=== PATIENT | female | born 1990 | race Caucasian/White ===

== ENCOUNTER 2019-07-22 23:26 | Inpatient (IN) | payer SELFPAY ==
[~2019-07-22] VITALS: Ht 167.7 cm; Wt 88.9 kg
--- NOTE | 2019-07-22 23:34 | NUR ---
FARA TORRES presented to unit via wheelchair from ED, accompanied by family , with c/o LABOR. FARA TORRES weighed, gowned, voided, and to bed. EFHM and TOCO applied, VS taken. FARA TORRES oriented to bed controls, call light, TV, heat, and A/C controls.
[2019-07-22 23:45] VITALS: BP 110/55
--- NOTE | 2019-07-22 23:53 | NUR ---
Dr. Jones called about patient arrival, SVE, SROM at home at 0830, FHR rate, and contraction pattern. Orders received for admit, antibiotics for unknown GBS, and for labs.
[2019-07-23] VITALS (13 sets, daily range): BP systolic 91–115; BP diastolic 53–73
[2019-07-23] MEDS ORDERED: AMPICILLIN FOR IV USE 2,000 MG in WATER (STERILE) FOR INJECTION 14.8 ML IV SCH ×2
[2019-07-23] MEDS ORDERED: LACTATED RINGERS 1,000 ML IV SCH
--- NOTE | 2019-07-23 00:01 | NUR ---
Dr. Jones notified of late decelerations after each contractions. On way to hospital to assess pt.
[2019-07-23] MEDS ORDERED: AMPICILLIN FOR IV USE 2,000 MG VIAL ONE (00:04)
[2019-07-23] MEDS ORDERED: WATER (STERILE) FOR INJECTION 10 ML ONE (00:04)
--- NOTE | 2019-07-23 00:13 | NUR ---
Dr. Jones here to see pt. Orders received for STAT section.
--- NOTE | 2019-07-23 00:25 | NUR ---
Pt. transferred to OB OR via bed per OB staff.
[2019-07-23] MEDS ORDERED: metroNIDAZOLE 500MG/100ML IVPB 100 ML ONE (00:30)
[2019-07-23] MEDS ORDERED: OXYTOCIN/NORMAL SALINE 500 ML IV ONE ×2 (00:32→01:38)
[2019-07-23 00:42] LABS: BASOPHILS % (AUTO) 0 % (0-10); EOSINOPHILS # (AUTO) 0.2 10^3/uL (0.0-0.3); EOSINOPHILS % (AUTO) 2 % (0-10); HEMATOCRIT 31 % (35-52); HEMOGLOBIN 10.1 G/DL (11.5-16.0); LYMPHOCYTES # (AUTO) 1.3 X 10^3 (1.0-4.0); LYMPHOCYTES % (AUTO) 12 % (12-44); MEAN CORPUSCULAR HEMOGLOBIN 27 PG (25-34); MEAN CORPUSCULAR HGB CONC 32 G/DL (32-36); MEAN CORPUSCULAR VOLUME 85 FL (80-99); MEAN PLATELET VOLUME 9.8 FL (7.4-10.4); MONOCYTES # (AUTO) 0.9 X 10^3 (0.0-1.0); MONOCYTES % (AUTO) 8 % (0-12); NEUTROPHILS % (AUTO) 78 % (42-75); PLATELET COUNT 265 10^3/uL (130-400); RED CELL DISTRIBUTION WIDTH 15.3 % (10.0-14.5); WHITE BLOOD COUNT 10.3 10^3/uL (4.3-11.0)
[2019-07-23] MEDS ORDERED: MIDAZOLAM 2 MG/2 ML (VERSED) VIAL ONE (00:51)
[2019-07-23] MEDS ORDERED: fentaNYL INJECTION 100 MCG/2 ML AMP ONE ×2 (00:51→01:37)
[2019-07-23] MEDS ORDERED: DEXAMETHASONE 10 MG/ML (DECADRON) 1 ML VIAL ONE (01:08)
[2019-07-23] MEDS ORDERED: SUCCINYLCHOLINE INJ 100 MG/5 ML SYR ONE (01:08)
[2019-07-23] MEDS ORDERED: KETOROLAC 30 MG/ML VIAL ONE (01:08)
[2019-07-23] MEDS ORDERED: ONDANSETRON 4 MG/2 ML (SDV) Z0FRAN ONE (01:08)
[2019-07-23] MEDS ORDERED: proPOfol 200 MG/20 ML (DIPRIVAN) VIAL IV ONE (01:08)
[2019-07-23] MEDS: KETOROLAC 30 MG/ML VIAL IVP PRN ×4 (01:20→19:51)
[2019-07-23] MEDS: OXYTOCIN/NORMAL SALINE 500 ML IV SCH ×2 (01:25→05:10)
[2019-07-23] MEDS ORDERED: HYDROmorphone 2 MG/ML VIAL (DILAUDID) ONE (01:37)
[2019-07-23] MEDS ORDERED: DESFLURANE (SUPRANE) 15 ML INHAL SOLN ONE (01:38)
[2019-07-23] MEDS ORDERED: D5 LR IV SOLUTION 1,000 ML IV SCH ×2 (01:38)
[2019-07-23] MEDS ORDERED: TETANUS,DIPTH,PERTUSS P/F (BOOSTRIX) 0.5 ML VIAL IM ONE (01:45)
[2019-07-23] MEDS ORDERED: ONDANSETRON 4 MG/2 ML (SDV) Z0FRAN IVP PRN ×2 (01:45→02:30)
[2019-07-23] MEDS ORDERED: MEASLES,MUMPS,RUBELLA 1 EA INJ SC ONE (01:45)
[2019-07-23] MEDS ORDERED: ceFAZolin 2 GM/50 ML NS 50 ML IV ONE (01:45)
--- NOTE | 2019-07-23 01:48 | History & Physical ---
History and Physical Date Seen by Provider: Jul 23, 2019 Time Seen by Provider: 00:00 This patient is a 28-year-old white female with a reported due date of August 10, 2019. She has had no care she was being attended by nurse warp coiler and was laboring at home after having experienced spontaneous rupture membranes at 830 in the morning on July 22, 2019. She reports clear fluid at the time of spontaneous rupture. She reports having onset of irregular infrequent contractions starting approximately an hour later. She presented to our labor and delivery with the complaint of failure to progress in labor. Allergies are none Medications are none Past surgical history is none Past medical history is none Obstetric history includes 5 term spontaneous vaginal deliveries Social history patient denies tobacco drug or alcohol use. Family history is noncontributory HEENT exam is normal Neck is supple with no lymphadenopathy no thyromegaly Abdomen is gravid soft mildly tender at the suprapubic pubis Extremities show no clubbing or cyanosis. There is extensive varicosities Pelvic exam per the nurse showed a cervix that was 4 cm dilated with gross rupture membranes Laboratory Tests 07/23/19 00:00 monitor on my arrival heart rate pattern showed no excels with repetitive decelerations and no variability. Assessment and plan 37+ week intrauterine with failure to progress in labor after spontaneous rupture membranes at home. Patient labored at home with intention for home delivery. As the heart rate pattern is nonreassuring, rupture of membranes is definite per the nurse report, plan is to proceed with emergent delivery. This was discussed with the patient and her and mother. Their questions were answered and patient agreed with and accepted the plan. With failure to progress in labor during planned home delivery Allergies and Home Medications Allergies Coded Allergies: No Known Drug Allergies (Unverified , 07/23/19) Patient Home Medication List Home Medication List Reviewed: Yes ABHIJEET RODRIGUEZ MD Jul 23, 2019 01:47
[2019-07-23] MEDS ORDERED: fentaNYL INJECTION 100 MCG/2 ML AMP IVP ONE ×2 (02:30)
[2019-07-23] MEDS ORDERED: morphine INJ 10 MG/ML 1ML (SYR OR VIAL) IVP ONE (02:30)
[2019-07-23] MEDS ORDERED: HYDROmorphone 2 MG/ML VIAL (DILAUDID) IV ONE ×2 (02:30)
--- NOTE | 2019-07-23 02:30 | NUR ---
to pp room 305 following primary csection for distress by dr bañuelos via cart with recovery nurse. resting supine head of bed slightly elevated. family present at bedside. dressing D/I. vpad scant flow noted. vitals taken. oxygen on @ 2L via NC spo2 91%. raised to 95% with O2 will continue to monitor. denies need at this time.
[2019-07-23] MEDS ORDERED: AMPICILLIN FOR IV USE 1,000 MG in WATER (STERILE) FOR INJECTION 7.4 ML IV SCH (04:00)
--- NOTE | 2019-07-23 04:16 | OPERATIVE REPORT ---
DATE OF SERVICE: 07/23/2019 PREOPERATIVE DIAGNOSES: Term with failed attempted home delivery at 37 and 3/7 weeks' gestation with failure to progress in labor and with nonreassuring heart rate pattern/repetitive late decelerations. POSTOPERATIVE DIAGNOSES: SAME OPERATIVE PROCEDURE: Primary low transverse delivery of a viable female with Apgars of 6 and 8 at 1 and 5 minutes respectively, weight is 7 pounds 2 ounces. Cord blood pH of 7.22 and a time of 00:47. OPERATIVE DESCRIPTION: With the patient in the supine position, she was prepped and draped in the usual fashion for abdominal surgery and then general anesthesia was administered. On clearance from anesthesia when the patient was intubated, a Pfannenstiel incision was made through the skin with a scalpel, the patient's abdomen was entered in the usual manner. Bladder retractor was placed into position and a clean scalpel was used to make a 4 cm hysterotomy incision transversely across the lower uterine segment. There was essentially no amniotic fluid. The incision was extended by blunt dissection and a viable female infant was delivered via the uterine incision. had stats as noted above. The was bulb suctioned on delivery. The cord was doubly clamped and cut and the infant was taken to the warmer for resuscitation. Cord bloods were obtained. The placenta delivered spontaneously Colmenares. It was normal with a 3-vessel cord. The uterus was exteriorized. The interior wiped clean with a wet laparotomy sponge. Uterine incision was closed with a running locked suture of 2-0 Vicryl. It was noted on hysterotomy, a foul odor was detected. A culture was taken from the surface of the membranes. With the uterine incision closed, the uterus was returned to the abdominal cavity. All blood clot and debris was evacuated from the abdominal cavity. With sponge, needle counts correct and hemostasis assured at this point, the anterior parietal peritoneum was closed with a running suture of 2-0 Vicryl. Rectus muscles were closed with that suture as well. The rectus fascia was closed with 2-0 Vicryl, subcutaneous tissue was closed with 2-0 Vicryl and the skin closure was started with tanisha and then halted in favor of allowing an intraoperative x-ray for retained foreign objects. With none noted on the two films that were taken by the x-ray department, the procedure was completed by closing the skin and then applying the dressings. Sponge and needle counts were correct on completion of the procedure. Estimated blood loss was around 500 mL. The patient tolerated the procedure well and was uneventfully awakened from her general anesthesia and transferred to recovery room in stable condition. The infant had been taken stable to the full term nursery under the care of Dr. Valente. Job ID: [id number] DocumentID: [id number] Dictated Date: 07/23/2019 01:53:12 Studio Engineer Date: 07/23/2019 04:15:38 Dictated By: ABHIJEET RODRIGUEZ MD MTDD
[2019-07-23] MEDS: ceFAZolin 2 GM/50 ML NS 50 ML IV SCH ×2 (05:00→12:04)
[2019-07-23] MEDS ORDERED: CATHETER FLUSH 10 ML SYR IV SCH (06:00)
--- NOTE | 2019-07-23 07:03 | Diagnostic Imaging Report ---
INDICATION: Immediate postop imaging for abnormal sponge count. COMPARISON: None available. FINDINGS AND IMPRESSION: There are changes from lower abdominal laparotomy likely from section. No unintended radiopaque foreign bodies are appreciated. Dictated by: Dictated on workstation # [id number]
--- NOTE | 2019-07-23 07:48 | Progress Note ---
Standard Progress Note Progress Notes/Assess & Plan Date Seen by a Provider: Jul 23, 2019 Time Seen by a Provider: 07:47 Progress/Assessment & Plan This patient is without complaint. She is ambulating, tolerating oral intake well has good pain control. Patient has not voided since her just after midnight. Vital Signs Date Time Temp Pulse Resp B/P (MAP) Pulse Ox O2 Delivery O2 Flow Rate FiO2 07/23/19 02:30 36.6 75 14 108/63 (78) Room Air 07/23/19 02:30 36.9 20 104/68 (80) 98 Room Air 07/23/19 02:30 Room Air 07/23/19 02:20 20 100/68 (79) 97 Room Air 07/23/19 02:15 Room Air 07/23/19 02:10 20 98/68 (78) 97 Room Air 07/23/19 02:00 20 109/68 (82) 97 Room Air 07/23/19 02:00 Room Air 07/23/19 01:50 20 109/68 (82) 97 Room Air 07/23/19 01:45 Nasal Cannula 2 07/23/19 01:40 20 113/68 (83) 97 Nasal Cannula 2 07/23/19 01:30 Nasal Cannula 2 07/23/19 01:30 20 115/73 (87) 98 Nasal Cannula 2 07/23/19 01:24 Nasal Cannula 2 07/23/19 01:24 36.9 20 115/73 (87) 98 Nasal Cannula 2 07/22/19 23:45 95 16 110/55 (73) Room Air I & O 07/23/19 07:00 Output Total 700 ml Balance -700 ml Vital signs are stable. Patient is afebrile. The abdomen is benign. The surgical dressings is clean dry. Extremities show no clubbing cyanosis. There is extensive adiposity's. There is no Homans sign. There is some pretibial pitting edema that is likely normal. Assessment and plan status post emergency for nonreassuring heart rate pattern at 37+ weeks gestation after a trial of home delivery was unsuccessful. Plan now is for routine convalescence. ABHIJEET RODRIGUEZ MD Jul 23, 2019 07:48
--- NOTE | 2019-07-23 07:50 | Anesthesia-Regional Post-Op ---
Regional Patient Condition Mental Status: Alert, Oriented x3 Circulation: Same as Pre-Op Headache: Absent Sensation: Full Recovery Motor Block: Absent Post Op Complications Complications None Follow Up Care/Instructions Patient Instructions None needed. Anesthesia/Patient Condition Patient is doing well, no complaints, stable vital signs, no apparent adverse anesthesia problems. No complications reported per nursing. HERMINIO MORGAN CRNA Jul 23, 2019 07:50
[2019-07-23] MEDS ORDERED: DOCU100C37 PO (07:59)
[2019-07-23] MEDS ORDERED: IBUP-1780 PO (07:59)
[2019-07-23] MEDS ORDERED: OXYC1TAB12 PO (07:59)
--- NOTE | 2019-07-23 08:00 | Discharge Instructions ---
Discharge Instructions Discharge Medications New, Converted or Re-Newed RX: RX on Chart Patient Instructions Return to The Hospital For: As directed Activity & Diet Discharge Diet: No Restrictions Activity as Tolerated: No Orders-Post D/C & Referrals Follow Up Appt: RTC 1 week for incision check. Call to make follow up appt. for patient in 4 weeks. Wound Care: Remove tanisha, apply benzoin and steri strips. Activity Per routine post instructions. Please call in RX to patient pharmacy. Diet as tolerated Patient may shower or tub bathe as desired. Continue home meds ABHIJEET RODRIGUEZ MD Jul 23, 2019 08:00
[2019-07-23] MEDS: oxyCODONE/APAP 10/325MG (PERCOCET 10) TABLET PO PRN ×2 (08:08→19:52)
--- NOTE | 2019-07-23 08:11 | NUR ---
THIS RN TO BEDSIDE PT IS C/O PAIN. PT SITTING UP IN BED, . (1) PERCOCET AND ROUTINE TORADOL GIVEN; SEE EMAR FOR FURTHER. RT TO BEDSIDE TO INITIATE INCENTIVE SPIROMETRY. FRESH ICE WATER PROVIDED. NO FURTHER NEEDS VOICED AT THIS TIME.
--- NOTE | 2019-07-23 10:10 | NUR ---
PT IN BED. S/O AND VISITOR REMAIN AT THE BEDSIDE. INITIAL SHIFT ASSESSMENT COMPLETED; SEE INTERVENTION FOR FURTHER. LAB AT BEDSIDE DRAWING . NO NEEDS OR QUESTIONS VOICED. CALL LIGHT AVAILABLE.
--- NOTE | 2019-07-23 12:05 | NUR ---
PT IN BED, ALONE, INFANT AT THE BEDSIDE. ABX AND FLUIDS HUNG AND INFUSING WITHOUT DIFFICULTY; SEE EMAR FOR FURTHER. NO NEEDS VOICED AT THIS TIME. CALL LIGHT WITHIN REACH.
[2019-07-23] MEDS: DOCUSATE SODIUM 100 MG (COLACE) CAP PO SCH ×2 (12:21→19:52)
--- NOTE | 2019-07-23 14:45 | NUR ---
PT IN BED, S/O AND AT THE BEDSIDE. ROUTINE TORADOL GIVEN IVP; SEE EMAR FOR FURTHER. PT DENIES ANY NEEDS AT THIS TIME.
--- NOTE | 2019-07-23 18:08 | NUR ---
PT RESTING, NO NEEDS VOICED.
[2019-07-23 21:27] LABS: HEPATITIS C ANTIBODY C Non-Reactive (Non-Reactive)
[2019-07-24] MEDS: IBUPROFEN 800 MG (MOTRIN) TAB PO SCH ×4 (02:22→21:25)
[2019-07-24 05:30] VITALS: BP 106/59
--- NOTE | 2019-07-24 07:47 | Progress Note ---
Standard Progress Note Progress Notes/Assess & Plan Date Seen by a Provider: Jul 24, 2019 Time Seen by a Provider: 07:45 Progress/Assessment & Plan This patient is without complaint. She is ambulating, tolerating oral intake well has good pain control. Patient has not voided since her just after midnight. Vital Signs Date Time Temp Pulse Resp B/P (MAP) Pulse Ox O2 Delivery O2 Flow Rate FiO2 07/23/19 02:30 36.6 75 14 108/63 (78) Room Air 07/23/19 02:30 36.9 20 104/68 (80) 98 Room Air 07/23/19 02:30 Room Air 07/23/19 02:20 20 100/68 (79) 97 Room Air 07/23/19 02:15 Room Air 07/23/19 02:10 20 98/68 (78) 97 Room Air 07/23/19 02:00 20 109/68 (82) 97 Room Air 07/23/19 02:00 Room Air 07/23/19 01:50 20 109/68 (82) 97 Room Air 07/23/19 01:45 Nasal Cannula 2 07/23/19 01:40 20 113/68 (83) 97 Nasal Cannula 2 07/23/19 01:30 Nasal Cannula 2 07/23/19 01:30 20 115/73 (87) 98 Nasal Cannula 2 07/23/19 01:24 Nasal Cannula 2 07/23/19 01:24 36.9 20 115/73 (87) 98 Nasal Cannula 2 07/22/19 23:45 95 16 110/55 (73) Room Air I & O 07/23/19 07:00 Output Total 700 ml Balance -700 ml Vital signs are stable. Patient is afebrile. The abdomen is benign. The surgical dressings is clean dry. Extremities show no clubbing cyanosis. There is extensive adiposity's. There is no Homans sign. There is some pretibial pitting edema that is likely normal. Assessment and plan status post emergency for nonreassuring heart rate pattern at 37+ weeks gestation after a trial of home delivery was unsuccessful. Plan now is for routine convalescence. July 24, 2019 This patient is without complaint. She is ambulating, voiding, tolerating intake well has good pain control. Patient denies chest pain, denies shortness breath, denies nausea vomiting, and denies headache. Vital Signs Date Time Temp Pulse Resp B/P (MAP) Pulse Ox O2 Delivery O2 Flow Rate FiO2 07/24/19 05:30 36.6 90 18 106/59 (75) 98 Room Air 07/23/19 23:37 36.3 87 18 97/57 (70) 97 07/23/19 19:27 37.6 95 17 107/60 (76) 98 07/23/19 16:16 36.7 92 17 95/57 (70) 97 07/23/19 11:00 36.7 86 18 91/55 (67) 95 Room Air 07/23/19 08:33 37.2 89 16 97/53 (68) 95 Room Air 07/23/19 08:15 Room Air I & O 07/24/19 06:59 Intake Total 3800 ml Output Total 3200 ml Balance 600 ml Vital signs are stable. Patient is afebrile. The abdomen is benign. Fundus is firm below the umbilicus and nontender. Extremities show no clubbing or cyanosis. Assessment and plan postoperative day number 1 status post primary delivery doing well. Plan is for routine convalescence care ABHIJEET RODRIGUEZ MD Jul 24, 2019 07:47
[2019-07-24 08:25] VITALS: BP 94/59
[2019-07-24] MEDS: DOCUSATE SODIUM 100 MG (COLACE) CAP PO SCH ×2 (08:27→21:25)
--- NOTE | 2019-07-24 08:30 | NUR ---
PT IN BED, . VS OBTAINED. MEDS GIVEN PO; SEE EMAR FOR FURTHER. NO NEEDS VOICED AT THIS TIME.
--- NOTE | 2019-07-24 10:06 | Anesthesia-General Post-Op ---
General Patient Condition Mental Status/LOC: Same as Preop Cardiovascular: Satisfactory Nausea/Vomiting: Absent Respiratory: Satisfactory Pain: Controlled Complications: Absent Post Op Complications Complications None Follow Up Care/Instructions Patient Instructions None needed. Anesthesia/Patient Condition Patient Condition Patient is doing well, no complaints, stable vital signs, no apparent adverse anesthesia problems. No complications reported per nursing. WALE BRADSHAW CRNA Jul 24, 2019 10:06
--- NOTE | 2019-07-24 11:11 | NUR ---
INITIAL ASSESSMENT COMPLETED; SEE INTERVENTION FOR FURTHER. S/O AT THE BEDSIDE. SHOWER SET UP. CALL LIGHT WITHIN REACH.
[2019-07-24 15:15] VITALS: BP 113/58
--- NOTE | 2019-07-24 15:15 | NUR ---
PT IN BED, VISITORS AT THE BEDSIDE. VS OBTAINED. ROUTINE MOTRIN GIVEN PO; SEE EMAR FOR FURTHER. NO NEEDS VOICED AT THIS TIME.
--- NOTE | 2019-07-24 18:27 | NUR ---
PT SITTING UP IN BED, EATING DINNER. FRESH ICE WATER PROVIDED. MORE SUPPLIES PLACED INTO THE BATHROOM. PT ENCOURAGED TO GET UP AND WALK THE HALLWAYS TONIGHT. PT VOICES THAT SHE'S BEEN UP TO THE CHAIR TWICE TODAY. NO FURTHER NEEDS VOICED. CALL LIGHT WITHIN REACH. S/O AT THE BEDSIDE.
--- NOTE | 2019-07-24 19:30 | NUR ---
Family and visitors present in room with patient and baby. No needs or concerns voiced at this time. Will return for assessment.
[2019-07-24 21:30] VITALS: BP 103/63
[2019-07-25] MEDS: IBUPROFEN 800 MG (MOTRIN) TAB PO SCH ×2 (03:01→09:30)
[2019-07-25 03:03] VITALS: BP 103/68
--- NOTE | 2019-07-25 07:30 | Progress Note ---
Standard Progress Note Progress Notes/Assess & Plan Date Seen by a Provider: Jul 25, 2019 Time Seen by a Provider: 07:29 Progress/Assessment & Plan This patient is without complaint. She is ambulating, tolerating oral intake well has good pain control. Patient has not voided since her just after midnight. Vital Signs Date Time Temp Pulse Resp B/P (MAP) Pulse Ox O2 Delivery O2 Flow Rate FiO2 07/23/19 02:30 36.6 75 14 108/63 (78) Room Air 07/23/19 02:30 36.9 20 104/68 (80) 98 Room Air 07/23/19 02:30 Room Air 07/23/19 02:20 20 100/68 (79) 97 Room Air 07/23/19 02:15 Room Air 07/23/19 02:10 20 98/68 (78) 97 Room Air 07/23/19 02:00 20 109/68 (82) 97 Room Air 07/23/19 02:00 Room Air 07/23/19 01:50 20 109/68 (82) 97 Room Air 07/23/19 01:45 Nasal Cannula 2 07/23/19 01:40 20 113/68 (83) 97 Nasal Cannula 2 07/23/19 01:30 Nasal Cannula 2 07/23/19 01:30 20 115/73 (87) 98 Nasal Cannula 2 07/23/19 01:24 Nasal Cannula 2 07/23/19 01:24 36.9 20 115/73 (87) 98 Nasal Cannula 2 07/22/19 23:45 95 16 110/55 (73) Room Air I & O 07/23/19 07:00 Output Total 700 ml Balance -700 ml Vital signs are stable. Patient is afebrile. The abdomen is benign. The surgical dressings is clean dry. Extremities show no clubbing cyanosis. There is extensive adiposity's. There is no Homans sign. There is some pretibial pitting edema that is likely normal. Assessment and plan status post emergency for nonreassuring heart rate pattern at 37+ weeks gestation after a trial of home delivery was unsuccessful. Plan now is for routine convalescence. July 24, 2019 This patient is without complaint. She is ambulating, voiding, tolerating intake well has good pain control. Patient denies chest pain, denies shortness breath, denies nausea vomiting, and denies headache. Vital Signs Date Time Temp Pulse Resp B/P (MAP) Pulse Ox O2 Delivery O2 Flow Rate FiO2 07/24/19 05:30 36.6 90 18 106/59 (75) 98 Room Air 07/23/19 23:37 36.3 87 18 97/57 (70) 97 07/23/19 19:27 37.6 95 17 107/60 (76) 98 07/23/19 16:16 36.7 92 17 95/57 (70) 97 07/23/19 11:00 36.7 86 18 91/55 (67) 95 Room Air 07/23/19 08:33 37.2 89 16 97/53 (68) 95 Room Air 07/23/19 08:15 Room Air I & O 07/24/19 06:59 Intake Total 3800 ml Output Total 3200 ml Balance 600 ml Vital signs are stable. Patient is afebrile. The abdomen is benign. Fundus is firm below the umbilicus and nontender. Extremities show no clubbing or cyanosis. Assessment and plan postoperative day number 1 status post primary delivery doing well. Plan is for routine convalescence care July 25, 2019 Patient without complaint. She is ambulating, voiding, tolerating oral intake well has good pain control. Vital Signs Date Time Temp Pulse Resp B/P (MAP) Pulse Ox O2 Delivery O2 Flow Rate FiO2 07/25/19 03:03 36.6 83 18 103/68 (80) 98 Room Air 07/24/19 21:30 36.4 86 18 103/63 (76) 98 Room Air 07/24/19 15:15 37.2 111 18 113/58 (76) 97 Room Air 07/24/19 08:25 36.9 90 18 94/59 (71) 97 Room Air I & O 07/25/19 07:00 Intake Total 1300 ml Balance 1300 ml Vital signs are stable. Patient is afebrile. Abdomen is benign. The surgical incision is clean dry and intact. Extremities show no clubbing cyanosis. There is no Homans sign. Assessment and plan postoperative day number 2 status post primary delivery doing well. Plan is for discharge home with follow-up in clinic ABHIJEET RODRIGUEZ MD Jul 25, 2019 07:30
--- NOTE | 2019-07-25 07:35 | Discharge Summary ---
Discharge Summary 37 week primary delivery This patient is a 28-year-old now 6 white female. This patient presented in the late hours of 07/22 with the complaint of failure to progress in labor after over 12 hours laboring at home. She was being attended by a fitness trainer. She had experienced rupture membranes approximately 830 in the a.m. of 07/22. heart rate was concerning and that there were no accelerations that were repetitive late D cells. Patient was taken emergently to the operating room for primary delivery due to the nonreassuring heart rate pattern. Delivery was effected just after midnight. Through the day on July 23 patient was stable. She did continue on IV fluids and IV antibiotics for infection prophylaxis due to the prolonged labor with rupture membranes. On July 24, 2019 which was postoperative day number 1 patient was ambulating well voiding well tolerating oral intake and had good pain control. She was afebrile. On July 25, 2019 patient now is again ambulating well voiding well tolerating oral intake well has good pain control. She has remained afebrile. Plan is for discharge home with follow-up in clinic Principal diagnoses this hospitalization primary delivery at 37+ weeks gestation after failed attempted home delivery Secondary diagnoses are. Progress in labor prolonged rupture membranes no care Operation procedures include monitoring, general anesthesia, primary delivery, IV antibiotics Patient was given appropriate discharge instructions verbally and writing copy those placed in chart. Discharge medications are Percocet and Motrin and Colace Clinical Quality Measures DVT/VTE Risk/Contraindication: Risk Factor Score Per Nursin RFS Level Per Nursing on Admit: 3=High ABHIJEET RODRIGUEZ MD Jul 25, 2019 07:35
--- NOTE | 2019-07-25 07:44 | NUR ---
THIS RN DISCUSSES PLAN OF CARE WITH DR RODRIGUEZ. RN NOTIFIES DR THAT RUBELLA HAS NOT BEEN DRAWN. DR RODRIGUEZ STATES TO NOT WORRY ABOUT IT, THEY WILL ADDRESS IT WHEN THE PT SEES HIM FOR PP APPT IN CLINIC. PT MAY DC TO HOME/ROOMING IN DEPENDING ON STATUS OF . Addendum: 07/25/19 at 1152 by FLACO SEWELL RN THIS NOTE WAS MADE BY FLACO Mensah RN. COMPUTER AUTOMATICALLY SIGNED ONTO NADER Cain RN WHEN THIS RN BADGED IN TO COMPUTER.
[2019-07-25 09:00] VITALS: BP 103/51
[2019-07-25] MEDS ORDERED: TETANUS,DIPTH,PERTUSS P/F (BOOSTRIX) 0.5 ML VIAL IM ONE (09:16)
--- NOTE | 2019-07-25 09:30 | NUR ---
THIS RN DISCUSSES PLAN OF CARE WITH PT AND SO. PHYSICAL ASSESSMENT COMPLETED. VSS. QUESTIONS ANSWERED. MEDICATIONS ADMIN. PT DENIED TDAP.
[2019-07-25] MEDS: DOCUSATE SODIUM 100 MG (COLACE) CAP PO SCH (09:31)
== END 2019-07-25 13:10 | disposition home or self-care (01) | DRG 788 ==
LOC: LDRP 23:26 → WS 07-23 02:30
PROVIDERS: ADMIT Obstetrics & Gynecology; ATTEND Obstetrics & Gynecology
PROC: 10D00Z1 Extraction of Products of Conception, Low, Open Approach (ICD-10-PCS; principal; 2019-07-23 00:44)
DX: O76 Abnormality in fetal heart rate and rhythm complicating labor and delivery (principal); O62.2 Other uterine inertia; O42.02 Full-term premature rupture of membranes, onset of labor within 24 hours of rupture; Z3A.37 37 weeks gestation of pregnancy; Z37.0 Single live birth
CPT/HCPCS: 36415; 71045; 74018; 80074; 85025; 86703; 86780; 86850; 86900; 86901; 87070; 87077; 87186; 87205; 94664; 99212

== ENCOUNTER 2021-01-19 07:08 | Outpatient (CLI) | payer SELFPAY ==
[~2021-01-19] VITALS: Ht 165.1 cm; Wt 88.6 kg
[~2021-01-19 07:08] MED LIST: DOCU100C37 PO; IBUP-1780 PO; OXYC1TAB12 PO
[2021-01-20] MEDS ORDERED: DCS100C PO (19:31)
[2021-01-20] MEDS ORDERED: IBUP-1780 PO (19:31)
[2021-01-20] MEDS ORDERED: OXYC1TAB12 PO (19:31)
== END 2021-01-19 09:05 | disposition home or self-care (01) ==
LOC: PREOP 07:08
PROVIDERS: ATTEND Obstetrics & Gynecology
DX: Z01.818 Encounter for other preprocedural examination (principal)

== ENCOUNTER 2021-01-20 09:04 | Inpatient (IN) | payer SELFPAY ==
[2021-01-20] VITALS (8 sets, daily range): BP systolic 99–108; BP diastolic 56–70
[~2021-01-20] VITALS: Ht 165.1 cm; Wt 85.8 kg
[2021-01-20] MEDS ORDERED: LACTATED RINGERS 1,000 ML IV ONE (09:33)
[2021-01-20] MEDS ORDERED: metroNIDAZOLE 500MG/100ML IVPB 100 ML IV ONE ×2 (09:45)
[2021-01-20] MEDS ORDERED: D5 LR IV SOLUTION 1,000 ML IV SCH ×2 (09:45→14:45)
[2021-01-20] MEDS ORDERED: ceFAZolin INJECTION 1,000 MG in WATER (STERILE) FOR INJECTION 10 ML IV ONE (09:45)
[2021-01-20] MEDS ORDERED: ceFAZolin INJECTION 2,000 MG in WATER (STERILE) FOR INJECTION 10 ML IV ONE (09:45)
[2021-01-20 10:11] LABS: BASOPHILS % (AUTO) 0 % (0-10); EOSINOPHILS # (AUTO) 0.1 10^3/uL (0.0-0.3); EOSINOPHILS % (AUTO) 1 % (0-10); HEMATOCRIT 34 % (35-52); HEMOGLOBIN 11.2 g/dL (11.5-16.0); LYMPHOCYTES # (AUTO) 1.6 10^3/uL (1.0-4.0); LYMPHOCYTES % (AUTO) 24 % (12-44); MEAN CORPUSCULAR HEMOGLOBIN 29 pg (25-34); MEAN CORPUSCULAR HGB CONC 33 g/dL (32-36); MEAN CORPUSCULAR VOLUME 89 fL (80-99); MEAN PLATELET VOLUME 10.2 fL (9.0-12.2); MONOCYTES # (AUTO) 0.5 10^3/uL (0.0-1.0); MONOCYTES % (AUTO) 7 % (0-12); NEUTROPHILS # (AUTO) 4.4 10^3/uL (1.8-7.8); NEUTROPHILS % (AUTO) 67 % (42-75); PLATELET COUNT 202 10^3/uL (130-400); WHITE BLOOD COUNT 6.5 10^3/uL (4.3-11.0)
[2021-01-20] MEDS ORDERED: ceFAZolin 2 GM IV Premixed 50 ML ONE (10:43)
[2021-01-20] MEDS ORDERED: FAMOTIDINE 20MG/2ML IV (PEPCID) IV ONE (10:45)
[2021-01-20] MEDS ORDERED: CITRIC ACID/SOB CIT (BICITRA) 30 ML UDC PO ONE (10:45)
[2021-01-20] MEDS ORDERED: METOCLOPRAMIDE INJ 10 MG/2 ML (REGLAN) IV ONE (10:45)
[2021-01-20] MEDS ORDERED: CATHETER FLUSH 10 ML SYR IV PRN (10:45)
[2021-01-20] MEDS ORDERED: LACTATED RINGERS 1,000 ML IV PRN ×2 (10:45)
[2021-01-20] MEDS ORDERED: fentaNYL INJ 100 MCG/2 ML AMP ONE (11:25)
[2021-01-20] MEDS ORDERED: ONDANSETRON 4 MG/2 ML (SDV) Z0FRAN ONE (11:25)
[2021-01-20] MEDS ORDERED: OXYTOCIN PRE-MIX DRIP 1,000 ML IV ONE (12:21)
[2021-01-20] MEDS ORDERED: KETOROLAC 30 MG/ML VIAL ONE (14:35)
[2021-01-20] MEDS ORDERED: OXYTOCIN PRE-MIX DRIP 500 ML IV SCH (14:45)
[2021-01-20] MEDS ORDERED: TETANUS,DIPTH,PERTUSS P/F (BOOSTRIX) 0.5 ML VIAL IM ONE (14:45)
[2021-01-20] MEDS ORDERED: ONDANSETRON 4 MG/2 ML (SDV) Z0FRAN IVP PRN (14:45)
[2021-01-20] MEDS ORDERED: MEASLES,MUMPS,RUBELLA 1 EA INJ SC ONE (14:45)
[2021-01-20] MEDS ORDERED: oxyCODONE/APAP 10/325MG (PERCOCET 10) TABLET PO PRN (14:45)
[2021-01-20] MEDS ORDERED: fentaNYL INJ 100 MCG/2 ML AMP IVP PRN (14:45)
[2021-01-20] MEDS: KETOROLAC 30 MG/ML VIAL IVP SCH (14:51)
[2021-01-20] MEDS ORDERED: OXYC1TAB12 PO (19:31)
[2021-01-20] MEDS ORDERED: DCS100C PO (19:31)
[2021-01-20] MEDS ORDERED: IBUP-1780 PO (19:31)
--- NOTE | 2021-01-20 19:32 | Discharge Inst-Surgical ---
Discharge Inst-Surgical Depart Medication/Instructions New, Converted or Re-Newed RX: RX on Chart Consults/Follow Up Patient Instructions: As directed Orders & Referrals Follow Up Appt: RTC 1 week for incision check. Call to make follow up appt. for patient in 4 weeks. Wound Care: Remove tanisha, apply benzoin and steri strips. Activity Per routine post instructions. Please call in RX to patient pharmacy. Diet as tolerated Patient may shower or tub bathe as desired. Continue home meds Activity Activity as Tolerated: No Diet Discharge Diet: No Restrictions ABHIJEET RODRIGUEZ MD Jan 20, 2021 19:32
[2021-01-20] MEDS: DOCUSATE SODIUM 100 MG (COLACE) CAP PO SCH (21:20)
--- NOTE | 2021-01-20 23:34 | OPERATIVE REPORT ---
DATE OF SERVICE: 01/20/2021 PREOPERATIVE DIAGNOSIS: Term at 39+ weeks' gestation with previous . POSTOPERATIVE DIAGNOSIS: Term at 39+ weeks' gestation with previous . OPERATIVE PROCEDURE: Repeat low transverse delivery of a viable male with Apgars of 8 and 8 at 1 and 5 minutes respectively, weight of 9 pounds, time of 12:39 and a cord blood pH of 7.23. OPERATIVE DESCRIPTION: With the patient in supine position under satisfactory spinal analgesia, she was repositioned in dorsal lithotomy position in the supine position and prepped and draped in the usual fashion for abdominal surgery. Matamoros catheter was placed in the urinary bladder. A repeat Pfannenstiel incision was made through skin with scalpel, the patient's abdomen entered in the usual manner. Bladder retractor placed in position, clean scalpel used to make a 4 cm hysterotomy incision transversely across the lower uterine segment that was extended by blunt dissection as well. Clear fluid was released on hysterotomy. Mckeon forceps were applied to facilitate the delivery of the male with Apgars and stats as noted above. The was bulb suctioned on delivery of the head, the single loop of umbilical cord was easily released and then the infant delivered completely. The infant was bulb suctioned as the umbilical cord was doubly clamped and cut and the infant passed to the pediatric nurse in attendance for delivery. Cord bloods were obtained. Placenta delivered spontaneously Colmenares. It was normal with a 3-vessel cord. The uterus was exteriorized and interior wiped clean with a wet laparotomy sponge. Uterine incision closed with running locked suture of 2-0 Vicryl. Hemostasis was complete. The uterus was returned to the abdominal cavity. All blood clots were removed from the abdominal cavity. With sponge and needle counts correct, hemostasis assured. The anterior parietal peritoneum was closed with running suture of 2-0 Vicryl. Rectus muscles were closed with that suture as well. The rectus fascia was closed with 2-0 Vicryl, subcutaneous tissue with 2-0 Vicryl and the skin was stapled. Sponge and needle counts were correct on completion of the procedure. Estimated blood loss was around 500 mL. The patient tolerated the procedure well and was transferred to recovery room in stable condition. The had remained in the OR with the mom. Job ID: [id number] DocumentID: [id number] Dictated Date: 01/20/2021 15:08:37 Core Analyst Date: 01/20/2021 23:32:48 Dictated By: ABHIJEET RODRIGUEZ MD
[2021-01-21 03:15] VITALS: BP 115/59
[2021-01-21] MEDS: KETOROLAC 30 MG/ML VIAL IVP SCH ×4 (03:20→23:28)
[2021-01-21 06:32] VITALS: BP 119/71
[2021-01-21] MEDS: DOCUSATE SODIUM 100 MG (COLACE) CAP PO SCH ×4 (08:54→21:07)
[2021-01-21 10:23] VITALS: BP 109/64
--- NOTE | 2021-01-21 10:41 | Anesthesia-Regional Post-Op ---
Regional Patient Condition Mental Status: Alert, Oriented x3 Circulation: Same as Pre-Op Headache: Absent Sensation: Full Recovery Motor Block: Absent Post Op Complications Complications None Follow Up Care/Instructions Patient Instructions None needed. Anesthesia/Patient Condition Patient is doing well, no complaints, stable vital signs, no apparent adverse anesthesia problems. No complications reported per nursing. [place] [facility] [place] SANTHOSH Rich CRNA Jan 21, 2021 10:41
--- NOTE | 2021-01-21 10:48 | Progress Note ---
Standard Progress Note Progress Notes/Assess & Plan Date Seen by a Provider: Jan 21, 2021 Time Seen by a Provider: 10:47 Progress/Assessment & Plan This patient is without complaint. She is ambulating, voiding, tolerating oral intake well and has good pain control. Vital Signs Date Time Temp Pulse Resp B/P (MAP) Pulse Ox O2 Delivery O2 Flow Rate FiO2 01/21/21 10:23 36.8 76 18 109/64 (79) 97 Room Air 01/21/21 06:32 36.7 66 18 119/71 (87) 97 Room Air 01/21/21 03:15 37.0 70 18 115/59 (77) 97 01/20/21 21:20 36.8 68 18 101/58 (72) 97 Room Air 01/20/21 16:55 36.8 70 20 99/56 (70) Room Air 01/20/21 16:54 Room Air 01/20/21 14:51 36.6 59 20 108/70 (83) 98 Room Air 01/20/21 14:13 36.2 20 105/59 (74) 100 Room Air 01/20/21 14:13 Room Air 01/20/21 13:56 36.2 20 101/68 (79) 100 Room Air 01/20/21 13:53 Room Air 01/20/21 13:38 36.1 20 100/69 (79) 99 Room Air 01/20/21 13:38 Room Air 01/20/21 13:23 36.3 20 101/60 (74) 98 Room Air 01/20/21 13:23 Room Air I & O 01/21/21 07:00 Intake Total 2710 ml Output Total 300 ml Balance 2410 ml Vital signs are stable. Patient is afebrile. Fundus is firm below the umbilicus and nontender. Extremities show no clubbing cyanosis. There is no Homans' sign. Assessment and plan postoperative day #1 status post repeat delivery at 39 weeks gestation. Patient is doing well and will have routine convalescent care ABHIJEET RODRIGUEZ MD Jan 21, 2021 10:48
[2021-01-21] MEDS: IBUPROFEN 800 MG (MOTRIN) TAB PO SCH ×3 (12:59→23:53)
[2021-01-21 16:54] VITALS: BP 115/62
[2021-01-21 20:44] VITALS: BP 110/60
[2021-01-22 00:13] VITALS: BP 118/75
[2021-01-22] MEDS: IBUPROFEN 800 MG (MOTRIN) TAB PO SCH (06:16)
[2021-01-22 06:30] VITALS: BP 115/69
--- NOTE | 2021-01-22 06:39 | Progress Note ---
Standard Progress Note Progress Notes/Assess & Plan Date Seen by a Provider: Jan 22, 2021 Time Seen by a Provider: 06:35 Progress/Assessment & Plan This patient is without complaint. She is ambulating, voiding, tolerating oral intake well and has good pain control. Vital Signs Date Time Temp Pulse Resp B/P (MAP) Pulse Ox O2 Delivery O2 Flow Rate FiO2 01/21/21 10:23 36.8 76 18 109/64 (79) 97 Room Air 01/21/21 06:32 36.7 66 18 119/71 (87) 97 Room Air 01/21/21 03:15 37.0 70 18 115/59 (77) 97 01/20/21 21:20 36.8 68 18 101/58 (72) 97 Room Air 01/20/21 16:55 36.8 70 20 99/56 (70) Room Air 01/20/21 16:54 Room Air 01/20/21 14:51 36.6 59 20 108/70 (83) 98 Room Air 01/20/21 14:13 36.2 20 105/59 (74) 100 Room Air 01/20/21 14:13 Room Air 01/20/21 13:56 36.2 20 101/68 (79) 100 Room Air 01/20/21 13:53 Room Air 01/20/21 13:38 36.1 20 100/69 (79) 99 Room Air 01/20/21 13:38 Room Air 01/20/21 13:23 36.3 20 101/60 (74) 98 Room Air 01/20/21 13:23 Room Air I & O 01/21/21 07:00 Intake Total 2710 ml Output Total 300 ml Balance 2410 ml Vital signs are stable. Patient is afebrile. Fundus is firm below the umbilicus and nontender. Extremities show no clubbing cyanosis. There is no Homans' sign. Assessment and plan postoperative day #1 status post repeat delivery at 39 weeks gestation. Patient is doing well and will have routine convalescent care January 22 2021 This patient is without complaint. She is ambulating, voiding, tolerating oral intake well and has good pain control. Abdomen is benign. The fundus is firm below the umbilicus and nontender. Extremities show no clubbing or cyanosis. There is no Homans' sign. Assessment and plan postoperative day #2 status post repeat delivery at 39 weeks gestation. Plan is for discharge home with follow-up in clinic Final Diagnosis 39-week repeat delivery ABHIJEET RODRIGUEZ MD Jan 22, 2021 06:39
[2021-01-22 11:30] VITALS: BP 109/58
== END 2021-01-22 11:30 | disposition home or self-care (01) | DRG 788 ==
LOC: LDRP 09:04
PROVIDERS: ADMIT Obstetrics & Gynecology; ATTEND Obstetrics & Gynecology
PROC: 10D00Z1 Extraction of Products of Conception, Low, Open Approach (ICD-10-PCS; principal; 2021-01-22)
DX: O34.211 Maternal care for low transverse scar from previous cesarean delivery (principal); Z3A.39 39 weeks gestation of pregnancy; Z37.0 Single live birth
CPT/HCPCS: 36415; 85025; 86850; 86900; 86901; 94664

== ENCOUNTER 2022-04-08 17:12 | Inpatient (IN) | payer OTHER ==
[~2022-04-08] VITALS: Ht 164 cm; Wt 91.3 kg
[2022-04-08] VITALS (10 sets, daily range): BP systolic 91–106; BP diastolic 55–69
[~2022-04-08 17:12] MED LIST changes: +DOCU-239 PO
[2022-04-08] MEDS ORDERED: PREN1TAB19 PO (17:47)
[2022-04-08] MEDS: LACTATED RINGERS 1,000 ML IV SCH ×2 (18:01→18:36)
--- NOTE | 2022-04-08 18:11 | History & Physical ---
History and Physical Date Seen by Provider: Apr 08, 2022 Time Seen by Provider: 18:09 This patient is a 31-year-old grand multiparous patient with several vaginal deliveries and at least 2 previous C-sections. She presents now in labor at 37 weeks gestation. She had plan for repeat delivery. She has had no problems with this . She did have late careStarting after 34 weeks gestation. Her GBS culture was negative. Allergies are none Medications are vitamins Medical social and surgical history is are per the antepartum record HEENT exam is normal Neck is supple no lymphadenopathy no thyromegaly Mattar is gravid soft nontender nondistended Extremities show no clubbing cyanosis. There is no Homans' sign. Pelvic exam was deferred Assessment and plan Term at 37 weeks gestation in labor 2 previous C-sections. Plan is to proceed with repeat delivery now 37 weeks gestation in laborWith previously/ Allergies and Home Medications Allergies Coded Allergies: No Known Drug Allergies (Unverified , 07/23/19) Patient Home Medication List Home Medication List Reviewed: Yes Vit/Iron Fumarate/FA ( Vitamins Tablet) 28 Mg Iron-800 Mcg Tablet, 1 EACH PO DAILY, (Reported) Entered as Reported by: RADHA TAMAYO on 04/08/221746 Last Action: New Order Discontinued Medications Docusate Sodium (Dok) 100 Mg Capsule, 100 MG PO BID Discontinued Reason: No Longer Taking Prescribed by: ABHIJEET LOWRY on 01/20/211930 Last Action: Discontinued Ibuprofen (Ibuprofen) 800 Mg Tablet, 800 MG PO Q6HR Discontinued Reason: No Longer Taking Prescribed by: ABHIJEET LOWRY on 01/20/211930 Last Action: Discontinued Oxycodone HCl/Acetaminophen (Percocet 10-325 mg Tablet) 1 Each Tablet, 1 TAB PO Q4HR PRN for Pain Discontinued Reason: No Longer Taking Prescribed by: ABHIJEET LOWRY on 01/20/211930 Last Action: Discontinued ABHIJEET RODRIGUEZ MD Apr 08, 2022 18:11
--- NOTE | 2022-04-08 18:13 | Discharge Inst-Surgical ---
Discharge Inst-Surgical Depart Medication/Instructions New, Converted or Re-Newed RX: Transmitted to Pharmacy Consults/Follow Up Patient Instructions: As directed Orders & Referrals Follow Up Appt: Return to clinic in 1 week for incision check Call to make follow up appt. for patient in 6 weeks. Activity Per routine post vaginal delivery instructions. Prescriptions have been transmitted to patient's pharmacy per my office Diet as tolerated Patient may shower or tub bathe as desired. Activity Activity as Tolerated: No Diet Discharge Diet: No Restrictions ABHIJEET RODRIGUEZ MD Apr 08, 2022 18:13
[2022-04-08] MEDS ORDERED: metroNIDAZOLE 500MG/100ML IVPB 100 ML IV ONE (18:15)
[2022-04-08] MEDS ORDERED: ceFAZolin INJECTION 2,000 MG in NS (IVPB) 50 ML IV ONE (18:15)
[2022-04-08] MEDS ORDERED: D5 LR IV SOLUTION 1,000 ML IV SCH ×2 (18:15→20:00)
[2022-04-08] MEDS ORDERED: ceFAZolin 2 GM IV Premixed 50 ML ONE (18:22)
[2022-04-08] MEDS ORDERED: CITRIC ACID/SOB CIT (BICITRA) 30 ML UDC ONE (18:24)
[2022-04-08] MEDS ORDERED: FAMOTIDINE 20MG/2ML IV (PEPCID) ONE (18:24)
[2022-04-08] MEDS ORDERED: METOCLOPRAMIDE INJ 10 MG/2 ML (REGLAN) ONE (18:24)
[2022-04-08] MEDS ORDERED: KETOROLAC 30 MG/ML VIAL ONE (18:26)
[2022-04-08] MEDS ORDERED: BUPIVACAINE 0.25% 30 ML (SENSORCAINE) VIAL ONE (18:26)
[2022-04-08] MEDS ORDERED: fentaNYL INJ 100 MCG/2 ML AMP ONE (18:26)
[2022-04-08] MEDS ORDERED: ONDANSETRON 4 MG/2 ML (SDV) Z0FRAN ONE (18:26)
[2022-04-08] MEDS ORDERED: OXYTOCIN PRE-MIX DRIP 1,000 ML IV ONE (18:26)
[2022-04-08 18:32] LABS: HEMOGLOBIN 9.8 g/dL (11.5-16.0); MEAN CORPUSCULAR HEMOGLOBIN 29 pg (25-34); WHITE BLOOD COUNT 6.5 10^3/uL (4.3-11.0)
[2022-04-08 18:33] LABS: BASOPHILS % (AUTO) 0 % (0-10); EOSINOPHILS # (AUTO) 0.1 10^3/uL (0.0-0.3); EOSINOPHILS % (AUTO) 2 % (0-10); HEMATOCRIT 30 % (35-52); LYMPHOCYTES # (AUTO) 1.4 X 10^3 (1.0-4.0); LYMPHOCYTES % (AUTO) 21 % (12-44); MEAN CORPUSCULAR HGB CONC 33 g/dL (32-36); MEAN CORPUSCULAR VOLUME 88 fL (80-99); MEAN PLATELET VOLUME 9.5 fL (9.0-12.2); MONOCYTES # (AUTO) 0.6 X 10^3 (0.0-1.0); MONOCYTES % (AUTO) 10 % (0-12); NEUTROPHILS # (AUTO) 4.4 X 10^3 (1.8-7.8); NEUTROPHILS % (AUTO) 67 % (42-75); PLATELET COUNT 213 10^3/uL (130-400)
[2022-04-08] MEDS ORDERED: FAMOTIDINE 20MG/2ML IV (PEPCID) IV ONE (18:45)
[2022-04-08] MEDS ORDERED: METOCLOPRAMIDE INJ 10 MG/2 ML (REGLAN) IV ONE (18:45)
[2022-04-08] MEDS ORDERED: LACTATED RINGERS 1,000 ML IV SCH ×2 (18:45)
[2022-04-08] MEDS ORDERED: CITRIC ACID/SOB CIT (BICITRA) 30 ML UDC PO ONE (18:45)
[2022-04-08] MEDS: KETOROLAC 30 MG/ML VIAL IVP SCH (19:30)
[2022-04-08 20:00] LABS: BACTERIA,URINE FEW /HPF; BILIRUBIN,URINE NEGATIVE (NEGATIVE); CLARITY,URINE SL CLOUDY; COLOR,URINE YELLOW; GLUCOSE, URINE (UA) NEGATIVE (NEGATIVE); KETONES,URINE NEGATIVE (NEGATIVE); LEUKOCYTE ESTERASE ,URINE 1+ (NEGATIVE); NITRITE,URINE NEGATIVE (NEGATIVE); PH,URINE 5.5 (5-9); PROTEIN,URINE NEGATIVE (NEGATIVE); SQUAMOUS EPITHELIAL CELL,UR 0-2 /HPF
[2022-04-08] MEDS ORDERED: fentaNYL INJ 100 MCG/2 ML AMP IVP PRN (20:00)
[2022-04-08] MEDS ORDERED: ONDANSETRON 4 MG/2 ML (SDV) Z0FRAN IVP PRN (20:00)
[2022-04-08] MEDS ORDERED: oxyCODONE/APAP 10/325MG (PERCOCET 10) TABLET PO PRN (20:00)
[2022-04-08] MEDS: OXYTOCIN PRE-MIX DRIP 500 ML IV SCH ×2 (20:02→21:47)
[2022-04-08] MEDS ORDERED: DOCUSATE SODIUM 100 MG (COLACE) CAP PO SCH (21:00)
--- NOTE | 2022-04-08 21:47 | OPERATIVE REPORT ---
DATE OF SERVICE: 04/08/2022 PREOPERATIVE DIAGNOSIS: A 37-week gestation with grand multiparous with two previous sections, in labor. POSTOPERATIVE DIAGNOSIS: Same as preop OPERATIVE PROCEDURE: Repeat low transverse delivery of a viable female infant with Apgars of 6, 8 and 8 at 1, 5 and 10 minutes respectively. Weight was 6 pounds 14 ounces. time was 1910. Cord blood pH is pending. OPERATIVE DESCRIPTION: With the patient in supine position under satisfactory spinal analgesia, she was repositioned in dorsal lithotomy position in the Ford stirru and prepped and draped in the usual fashion for abdominal surgery. Matamoros catheter was placed in the urinary bladder. A Pfannenstiel incision made through skin with scalpel. The patient's abdomen was entered in the usual manner. Bladder retractor was placed in position. Clean scalpel used to make a 4 cm hysterotomy incision transversely across the lower uterine segment that was extended bluntly as well. Copious clear fluid was released on hysterotomy. Mckeon forceps were applied to facilitate delivery of a vigorous viable female infant with Apgars and stats as noted above. The was bulb suctioned on delivery of the head and again on completion of delivery. Umbilical cord was doubly clamped and cut and the infant passed to the head banquet waitress in attendance for delivery. Cord bloods were obtained. The placenta delivered spontaneously [place]. It was normal with 3-vessel cord. The uterus was exteriorized and interior wiped clean with a wet laparotomy sponge. Uterine incision closed with a running locked suture of 2-0 Vicryl. Hemostasis was complete. The uterus was returned to abdominal cavity. All blood clot and debris removed from the abdominal cavity. Sponge and needle counts correct, hemostasis assured. The anterior parietal peritoneum was closed followed by the rectus muscles followed by the rectus fascia followed by the John's fascia and then the skin was stapled. The previous layers were closed with sutures of 2-0 Vicryl. Sponge and needle counts were correct on completion of procedure. Blood loss was around 400 mL. The patient tolerated the procedure well and was transferred to recovery room in stable condition. The infant had been taken stable to the full term nursery under the care of the head banquet waitress. Job ID: [id number] DocumentID: [id number] Dictated Date: 04/08/2022 20:06:12 Clinical Cytogenetics Director Date: 04/08/2022 21:47:19 Dictated By: ABHIJEET RODRIGUEZ MD MTDD
[2022-04-09] MEDS: KETOROLAC 30 MG/ML VIAL IVP SCH ×2 (01:18→06:43)
[2022-04-09 03:08] VITALS: BP 95/49
[2022-04-09] MEDS: DOCUSATE SODIUM 100 MG (COLACE) CAP PO SCH ×2 (07:52→09:15)
--- NOTE | 2022-04-09 08:06 | Progress Note ---
Standard Progress Note Progress Notes/Assess & Plan Date Seen by a Provider: Apr 09, 2022 Time Seen by a Provider: 08:05 Progress/Assessment & Plan Patient is without complaint. She is ambulating, voiding, tolerating oral intake well has good pain control. Patient is requesting discharge. Vital Signs Date Time Temp Pulse Resp B/P (MAP) Pulse Ox O2 Delivery O2 Flow Rate FiO2 04/09/22 03:08 36.4 70 18 95/49 (64) 97 Room Air 04/08/22 23:40 36.7 70 14 97/55 (69) 96 Room Air 04/08/22 20:55 64 14 91/60 (70) 96 Room Air 04/08/22 20:34 36.3 18 100/63 (75) 96 Room Air 04/08/22 20:34 Room Air 04/08/22 20:19 36.4 14 96/69 (78) 97 Room Air 04/08/22 20:19 Room Air 04/08/22 20:04 Room Air 04/08/22 20:04 36.1 13 95/64 (74) 92 Room Air 04/08/22 19:49 36.3 16 94/59 (71) 93 Room Air 04/08/22 19:49 Room Air 04/08/22 19:34 Room Air 04/08/22 19:34 36.6 20 92/55 (67) 94 Room Air 04/08/22 18:00 36.7 105 18 96 Room Air 04/08/22 17:30 36.7 105 18 96 Room Air 04/08/22 17:26 36.7 105 18 106/57 (73) 96 Room Air I & O 04/09/22 07:00 Intake Total 3950 ml Output Total 800 ml Balance 3150 ml Vital signs are stable. Patient is afebrile. The abdomen is benign. Extremities show no clubbing or cyanosis. There is no Homans' sign. Pelvic exam is deferred Assessment and plan Postoperative day #1 status post repeat delivery at 37 weeks gestation. Patient will be discharged at her request and will have follow-up in clinic Final Diagnosis 37-week repeat delivery ABHIJEET RODRIGUEZ MD Apr 09, 2022 08:06
[2022-04-09] MEDS ORDERED: IBUP-1780 PO (08:55)
[2022-04-09] MEDS ORDERED: OXYC1TAB12 PO (08:55)
[2022-04-09] MEDS ORDERED: DOCU100C37 PO (08:55)
[2022-04-09 09:14] VITALS: BP 109/59
--- NOTE | 2022-04-09 11:38 | Anesthesia-Regional Post-Op ---
Regional Patient Condition Mental Status: Alert, Oriented x3 Circulation: Same as Pre-Op Headache: Absent Sensation: Full Recovery Motor Block: Absent Post Op Complications Complications None Follow Up Care/Instructions Patient Instructions None needed. Anesthesia/Patient Condition Patient is doing well, no complaints, stable vital signs, no apparent adverse anesthesia problems. ISELA AWAN DO Apr 09, 2022 11:38
[2022-04-09 12:00] VITALS: BP 109/67
[2022-04-09] MEDS ORDERED: IBUPROFEN 800 MG (MOTRIN) TAB PO SCH (12:00)
[2022-04-13] MEDS ORDERED: IBUPROFEN 800 MG (MOTRIN) TAB PO SCH (20:00)
== END 2022-04-09 12:50 | disposition home or self-care (01) | DRG 788 ==
LOC: LDRP 17:12 → WSo 17:12 → LDRP 18:04 → WSo 18:04 → LDRP 20:34
PROVIDERS: ADMIT Obstetrics & Gynecology; ATTEND Obstetrics & Gynecology
PROC: 10D00Z1 Extraction of Products of Conception, Low, Open Approach (ICD-10-PCS; principal; 2022-04-08 18:47)
DX: O34.211 Maternal care for low transverse scar from previous cesarean delivery (principal); Z3A.37 37 weeks gestation of pregnancy; Z37.0 Single live birth
CPT/HCPCS: 36415; 81000; 85025; 86850; 86900; 86901; 87081; 87088; 94664